=== PATIENT | male | born 1980 | race Caucasian/White ===

== ENCOUNTER 2021-10-03 11:38 | Observation (INO) | payer SELFPAY ==
[~2021-10-03] VITALS: Ht 172 cm; Wt 104.0 kg
--- NOTE | 2021-10-03 12:08 | ED Chest Pain ---
General Chief Complaint: Chest Pain Stated Complaint: CHEST PAIN Source: patient Exam Limitations: no limitations (FLAVIO BOWDEN) History of Present Illness Date Seen by Provider: Oct 03, 2021 Time Seen by Provider: 12:06 Initial Comments Patient is a 41-year-old male with a history of hypertension, diabetes, dysli pidemia, smoking presents ED with chest pain. Acute onset around 1030 this morning. He states this occurred after having sexual intercourse with his . Noted having pressure in his chest with shortness of breath. [place] like somebody punched him in the chest. This lasted for 20 minutes. EMS provided 324 of aspirin which he noted improvement. Denies history of similar symptoms in the past. No history of acid reflux or GERD. Not currently taking blood pressure medication or cholesterol medication. Currently on a shot for his diabetes. No known history of coronary artery disease, COPD. Reports chronic cough. Denies fever, vomiting, diarrhea, Gustavo pain, headache, dizziness. (FLAVIO BOWDEN) Allergies and Home Medications Allergies Coded Allergies: No Known Drug Allergies (Unverified , 10/03/21) Patient Home Medication List Home Medication List Reviewed: Yes (FLAVIO BOWDEN) Semaglutide (Ozempic) 1 Mg/0.75 Ml Pen.injctr, 1 MG SQ MON, (Reported) Entered as Reported by: MAEVE BRANHAM on 10/03/21 1083 Last Action: Reviewed Review of Systems Review of Systems Constitutional: No chills, No diaphoresis, No malaise, No weakness EENTM: No Double Vision, No Eye Pain, No Eye Tearing, No Mouth Pain, No Throat Pain, No Throat Swelling Respiratory: Denies Cough; Shortness of Air; Denies SOA With Exertion, Denies SOA at Rest Cardiovascular: Chest Pain; Denies Edema, Denies Irregular Heart Rate Gastrointestinal: Denies Abdomen Distended, Denies Abdominal Pain, Denies Difficulty Swallowing, Denies Nausea Genitourinary: Denies Burning, Denies Discharge Musculoskeletal: No back pain, No joint pain Skin: No change in color, No change in hair/nails (FLAVIO BOWDEN) All Other Systems Reviewed Negative Unless Noted: Yes (FLAVIO BOWDEN) Physical Exam Vital Signs Vital Signs - First Documented 10/03/21 11:38 Temp 36.4 Pulse 83 Resp 17 B/P (MAP) 151/104 (120) Pulse Ox 95 O2 Delivery Room Air (SHELLIE POND MD) Vital Signs Capillary Refill : (FLAVIO BOWDEN) Height, Weight, BMI Height: '" Weight: lbs. oz. kg; BMI Method: General Appearance: No Apparent Distress, WD/WN HEENT: PERRL/EOMI, TMs Normal, Normal ENT Inspection, Pharynx Normal Neck: Full Range of Motion, Normal Inspection, Non Tender, Supple Respiratory: Chest Non Tender, Lungs Clear, Normal Breath Sounds Cardiovascular: Regular Rate, Rhythm, No Edema, No Gallop, No JVD, No Murmur Gastrointestinal: Normal Bowel Sounds, No Organomegaly, No Pulsatile Mass, Non Tender, Soft Extremity: Normal Capillary Refill, Normal Inspection Neurologic/Psychiatric: Alert, Oriented x3, No Motor/Sensory Deficits, Normal Mood/Affect, climatology professor II-XII Norm as Tested Skin: Normal Color, Warm/Dry (FLAVIO BOWDEN) Progress/Results/Core Measures Results/Orders Lab Results Laboratory Tests Test 10/03/21 11:55 Range/Units White Blood Count 9.0 4.3-11.0 10^3/uL Red Blood Count 5.89 H 4.30-5.52 10^6/uL Hemoglobin 17.6 13.3-17.7 g/dL Hematocrit 51 40-54 % Mean Corpuscular Volume 87 80-99 fL Mean Corpuscular Hemoglobin 30 25-34 pg Mean Corpuscular Hemoglobin Concent 35 32-36 g/dL Red Cell Distribution Width 12.4 10.0-14.5 % Platelet Count 167 130-400 10^3/uL Mean Platelet Volume 11.0 9.0-12.2 fL Immature Granulocyte % (Auto) 1 % Neutrophils (%) (Auto) 71 42-75 % Lymphocytes (%) (Auto) 18 12-44 % Monocytes (%) (Auto) 10 0-12 % Eosinophils (%) (Auto) 1 0-10 % Basophils (%) (Auto) 0 0-10 % Neutrophils # (Auto) 6.3 1.8-7.8 10^3/uL Lymphocytes # (Auto) 1.6 1.0-4.0 10^3/uL Monocytes # (Auto) 0.9 0.0-1.0 10^3/uL Eosinophils # (Auto) 0.1 0.0-0.3 10^3/uL Basophils # (Auto) 0.0 0.0-0.1 10^3/uL Immature Granulocyte # (Auto) 0.1 0.0-0.1 10^3/uL Prothrombin Time 13.4 12.2-14.7 SEC INR Comment 1.0 0.8-1.4 Activated Partial Thromboplast Time 31 24-35 SEC Sodium Level 132 L 135-145 MMOL/L Potassium Level 4.6 3.6-5.0 MMOL/L Chloride Level 101 98-107 MMOL/L Carbon Dioxide Level 21 21-32 MMOL/L Anion Gap 10 5-14 MMOL/L Blood Urea Nitrogen 7 7-18 MG/DL Creatinine 0.82 0.60-1.30 MG/DL Estimat Glomerular Filtration Rate 112 BUN/Creatinine Ratio 9 Glucose Level 249 H 70-105 MG/DL Calcium Level 9.3 8.5-10.1 MG/DL Corrected Calcium 9.1 8.5-10.1 MG/DL Magnesium Level 1.7 1.6-2.4 MG/DL Total Bilirubin 0.8 0.1-1.0 MG/DL Aspartate Amino Transf (AST/SGOT) 30 5-34 U/L Alanine Aminotransferase (ALT/SGPT) 40 0-55 U/L Alkaline Phosphatase 74 40-136 U/L Myoglobin 56.4 10.0-92.0 NG/ML Troponin I < 0.028 <0.028 NG/ML B-Type Natriuretic Peptide < 10.0 <100.0 PG/ML Total Protein 7.5 6.4-8.2 GM/DL Albumin 4.3 3.2-4.5 GM/DL Lipase 64 8-78 U/L (SHELLIE POND MD) My Orders Orders - SHELLIE POND MD Cbc With Automated Diff (10/03/21 11:58) Magnesium (10/03/21 11:58) Chest 1 View, Ap/Pa Only (10/03/21 11:58) Ekg Tracing (10/03/21 11:58) Comprehensive Metabolic Panel (10/03/21 11:58) Myoglobin Serum (10/03/21 11:58) Protime With Inr (10/03/21 11:58) Partial Thromboplastin Time (10/03/21 11:58) O2 (10/03/21 11:58) Monitor-Rhythm Ecg Trace Only (10/03/21 11:58) Lipid Panel (10/04/21 06:00) Ed Iv/Invasive Line Start (10/03/21 11:58) Troponin I Rhea (10/03/21 11:58) (SHELLIE POND MD) Medications Given in ED Current Medications Medications Dose Ordered Sig/Edi Route Start Time Stop Time Status Last Admin Dose Admin Aspirin 81 mg ONCE ONCE PO 10/03/21 13:00 10/03/21 13:02 DC 10/03/21 13:14 81 MG Clopidogrel Bisulfate 75 mg ONCE ONCE PO 10/03/21 13:00 10/03/21 13:02 DC 10/03/21 13:14 75 MG Metoprolol Succinate 100 mg ONCE ONCE PO 10/03/21 13:00 10/03/21 13:02 DC 10/03/21 13:17 100 MG (SHELLIE POND MD) Vital Signs/I&O 10/03/21 11:38 Temp 36.4 Pulse 83 Resp 17 B/P (MAP) 151/104 (120) Pulse Ox 95 O2 Delivery Room Air (SHELLIE POND MD) Comment Sinus rhythm, ST elevation probable in normal early repolarization diffuse leads, 82 bpm, QRS duration 91 MS, QTC 422 MS (FLAVIO BOWDEN) Departure Communication (Admissions) Time/Spoke to Admitting Phy: 13:[address] Daley cardiology. Recommends repeat EKG, Plavix 75 mg daily, baby aspirin 81 mg daily, Toprol-XL 100 mg daily. Continue with diabetes medication. Telemetry on stepdown. Currently n.p.o. Patient was admitted to the hospitalist. Discussed patient with Dr. Hitchcock accepts patient. Concerning for cardiac etiology with several cardiac risk factors. Second EKG without any changes. Second troponin was ordered. (FLAVIO BOWDEN) Impression Primary Impression: Chest pain Disposition: ADMITTED INPATIENT Condition: Stable Admissions Decision to Admit Reason: Admit from ER (General) Decision to Admit/Date: Oct 03, 2021 Time/Decision to Admit Time: 13:09 (FLAVIO BOWDEN) Departure-Patient Inst. Referrals: NO,LOCAL PHYSICIAN (PCP/Family) Primary Care Physician ATTENDING PHYSICIAN NOTE: I was physically present as attending physician in the emergency department during the care of this patient, but I was not directly involved in the decision making or delivery of care for this patient. (SHELLIE POND MD) FLAVIO BOWDEN Oct 03, 2021 12:08 SHELLIE POND MD Oct 03, 2021 20:48
[2021-10-03 12:10] LABS: BASOPHILS % (AUTO) 0 % (0-10); EOSINOPHILS # (AUTO) 0.1 10^3/uL (0.0-0.3); EOSINOPHILS % (AUTO) 1 % (0-10); HEMATOCRIT 51 % (40-54); HEMOGLOBIN 17.6 g/dL (13.3-17.7); LYMPHOCYTES # (AUTO) 1.6 10^3/uL (1.0-4.0); LYMPHOCYTES % (AUTO) 18 % (12-44); MEAN CORPUSCULAR HEMOGLOBIN 30 pg (25-34); MEAN CORPUSCULAR HGB CONC 35 g/dL (32-36); MEAN CORPUSCULAR VOLUME 87 fL (80-99); MONOCYTES # (AUTO) 0.9 10^3/uL (0.0-1.0); MONOCYTES % (AUTO) 10 % (0-12); NEUTROPHILS # (AUTO) 6.3 10^3/uL (1.8-7.8); NEUTROPHILS % (AUTO) 71 % (42-75); PLATELET COUNT 167 10^3/uL (130-400)
[2021-10-03 12:19] LABS: ALBUMIN 4.3 GM/DL (3.2-4.5)
[2021-10-03 12:20] LABS: POTASSIUM 4.6 MMOL/L (3.6-5.0); PROTHROMBIN TIME PATIENT 13.4 SEC (12.2-14.7)
[2021-10-03 12:21] LABS: CALCIUM 9.3 MG/DL (8.5-10.1)
[2021-10-03 12:22] LABS: TOTAL PROTEIN 7.5 GM/DL (6.4-8.2)
[2021-10-03 12:24] LABS: BILIRUBIN,TOTAL 0.8 MG/DL (0.1-1.0)
[2021-10-03 12:26] LABS: CREATININE SERUM 0.82 MG/DL (0.60-1.30)
[2021-10-03 12:27] LABS: LIPASE 64 U/L (8-78)
[2021-10-03 12:29] LABS: MAGNESIUM 1.7 MG/DL (1.6-2.4)
[2021-10-03] MEDS ORDERED: meTOprolol SUCCINATE 100 MG (TOPROL XL) TAB PO ONE (13:00)
[2021-10-03] MEDS ORDERED: ASPIRIN 81 MG CHEW (CHILDREN'S ASA) PO ONE (13:00)
[2021-10-03] MEDS ORDERED: CLOPIDOGREL 75 MG (PLAVIX) TABLET PO ONE (13:00)
--- NOTE | 2021-10-03 13:18 | Diagnostic Imaging Report ---
INDICATION: Chest pain. TIME OF EXAM: 12:51 p.m. COMPARISON: No prior studies are available for comparison. FINDINGS: The heart size is normal. The pulmonary vascularity is unremarkable. The lungs are clear. No infiltrate, effusion or pneumothorax is detected. IMPRESSION: No acute cardiopulmonary process is detected. Dictated by: Dictated on workstation # [id number]
--- NOTE | 2021-10-03 13:53 | Consultation-Cardiology ---
HPI-Cardiology Cardiology Consultation: Date of Consultation 10/03/21 Time Seen by a Provider: 15:10 Date of Admission 10-03-21 Attending Physician Evelyn Hitchcock MD Admitting Physician No,Local Physician Consulting Physician Georgia Daley MD HPI: Chief Complaint: Chest pain Mr. Zuñiga is a 41 yr old male admitted to [facility] from the ED with c/o chest pain. He reports 30 minutes prior to the development of chest pain he had been physically active; however at the time the chest pain started he was sitting at the kitchen table balancing his check book. He reports a sudden onset of left sided, non-radiating, chest pain which he describes as feeling like he was kicked in the chest. He reports he felt SOB, but no other symptoms. He states the pain lasted for 20-30 minutes, constant. He states he checked his BP and noted it to be 180's systolic. He reports he called EMS and then went to finish getting dressed while he waited on EMS. Chest pain did not change in relation to activity. He states he received ASA by EMS and the pain then suddenly resolved. He reports he has a toothache which has been present for approx 2 weeks (he is waiting to see a dentist) for which he has been taking 3 Tylenol along with 2 Ibuprofen and a cola. He states he has been taking a shot of whiskey to held numb the tooth pain. He continues to smoke cigs, approx 1 1/2 PPD. He is currently pain free. Review of Systems-Cardiology Review of Systems Constitutional: No chills, No fever, No malaise Eyes: No vision change Ears/Nose/Throat: As described under HPI; No epistaxis, No recent hearing loss Respiratory: As described under HPI Cardiovascular: As described under HPI Gastrointestinal: No constipation, No diarrhea, No nausea, No vomiting Genitourinary: No dysuria Musculoskeletal: no symptoms reported Skin: No rash on exposed areas, No ulcerations on exposed areas Psychiatric/Neurological: No focal weakness, No syncope Hematologic: No bleeding abnormalities All Other Systems Reviewed Negative Unless Noted: Yes AWD-Tjltfr-Frmmmf Hx Patient Social History Smoking Status: Current Everyday Smoker Have you traveled recently?: No Alcohol Use?: No Pt feels they are or have been: No Past Medical History PMH As described under Assessment. Family Medical History Family Medical History: No reported family h/o CAD. He reports his father had DM and lung cancer. Allergies and Home Medications Allergies Coded Allergies: No Known Drug Allergies (Unverified , 10/03/21) Patient Home Medication List Semaglutide (Ozempic) 1 Mg/0.75 Ml Pen.injctr, 1 MG SQ MON, (Reported) Entered as Reported by: MAEVE BRANHAM on 10/03/21 1951 Last Action: Reviewed Physical Exam-Cardiology Physical Exam Vital Signs/I&O 10/03/21 10/04/21 10/04/21 10/04/21 23:00 01:00 04:04 07:00 Temp 37.0 36.6 Pulse 72 72 69 69 Resp 15 16 B/P (MAP) 137/76 130/85 Pulse Ox 96 95 O2 Delivery Room Air Room Air 10/04/21 08:00 Temp 36.7 Pulse 87 Resp 16 B/P (MAP) 127/74 Pulse Ox 97 O2 Delivery Room Air 10/03/21 23:59 Intake Total 300 ml Balance 300 ml Capillary Refill : Constitutional: AAO x 3, well-developed, well-nourished HEENT: PERRL, hearing is well preserved Neck: No carotid bruit; carotid pulses are 2 + bilaterally Respiratory: No accessory muscle use, No respiratory distress; chest expansion is symmetric, chest is bilaterally symmetric, lungs clear to auscultation Cardiovascular: regular rate-rhythm; No JVD; S1 and S2 Gastrointestinal: No tender; soft, round, audible bowel sounds Extremities: no lower extremity edema bilateral Neurologic/Psychiatric: grossly intact (moves all extremities) Skin: No rash on exposed areas, No ulcerations on exposed areas Data Review Labs Laboratory Tests 10/03/21 11:55: White Blood Count 9.0, Red Blood Count 5.89H, Hemoglobin 17.6, Hematocrit 51, Mean Corpuscular Volume 87, Mean Corpuscular Hemoglobin 30, Mean Corpuscular Hemoglobin Concent 35, Red Cell Distribution Width 12.4, Platelet Count 167, Mean Platelet Volume 11.0, Immature Granulocyte % (Auto) 1, Neutrophils (%) (Auto) 71, Lymphocytes (%) (Auto) 18, Monocytes (%) (Auto) 10, Eosinophils (%) (Auto) 1, Basophils (%) (Auto) 0, Neutrophils # (Auto) 6.3, Lymphocytes # (Auto) 1.6, Monocytes # (Auto) 0.9, Eosinophils # (Auto) 0.1, Basophils # (Auto) 0.0, Immature Granulocyte # (Auto) 0.1, Prothrombin Time 13.4, INR Comment 1.0, Activated Partial Thromboplast Time 31, Sodium Level 132L, Potassium Level 4.6, Chloride Level 101, Carbon Dioxide Level 21, Anion Gap 10, Blood Urea Nitrogen 7, Creatinine 0.82, Estimat Glomerular Filtration Rate 112, BUN/Creatinine Ratio 9, Glucose Level 249H, Calcium Level 9.3, Corrected Calcium 9.1, Magnesium Level 1.7, Total Bilirubin 0.8, Aspartate Amino Transf (AST/SGOT) 30, Alanine Aminotransferase (ALT/SGPT) 40, Alkaline Phosphatase 74, Myoglobin 56.4, Troponin I < 0.028, B-Type Natriuretic Peptide < 10.0, Total Protein 7.5, Albumin 4.3, Lipase 64 10/03/21 15:30: Troponin I 0.527*H 10/03/21 18:16: Prothrombin Time 14.2, INR Comment 1.1, Activated Partial Thromboplast Time 34 10/04/21 04:55: Sodium Level 133L, Potassium Level 4.2, Chloride Level 103, Carbon Dioxide Level 20L, Anion Gap 10, Blood Urea Nitrogen 9, Creatinine 0.78, Estimat Glomerular Filtration Rate 114, BUN/Creatinine Ratio 12, Glucose Level 157H, Calcium Level 9.1, Triglycerides Level 205H, Cholesterol Level 205H, LDL Cholesterol Direct 146H, VLDL Cholesterol 41H, HDL Cholesterol 31L Radiology NAME: ARLET ZUÑIGA [facility] REC#: [id number] PT STATUS: REG ER : 1980 PHYSICIAN: SHELLIE POND MD ADMIT DATE: 10/03/21/ER Draft Date of Exam:10/03/21 CHEST 1 VIEW, AP/PA ONLY INDICATION: Chest pain. TIME OF EXAM: 12:51 p.m. COMPARISON: No prior studies are available for comparison. FINDINGS: The heart size is normal. The pulmonary vascularity is unremarkable. The lungs are clear. No infiltrate, effusion or pneumothorax is detected. IMPRESSION: No acute cardiopulmonary process is detected. Dictated on workstation # [id number] Dict: 10/03/21 1307 Trans: 10/03/21 1318 [id number] Interpreted by: GERSON JONES MD Electronically signed by: ECG Impression ECG Initial ECG Rhythm: Normal Sinus A/P-Cardiology Assessment/Admission Diagnosis NSTEMI DM 2 Tobaccoism - cessation advised Elevated BMI - 35.2 Dental pain Discussion and Recomendations NSTEMI Advise echocardiogram to eval structure and function Advise immediate and complete smoking cessation Monitor lab Replace electrolytes as indicated Further recs will be based on his hospital course We would like to thank medical services for this consult Clinical Quality Measures AMI/AHF: ASA po Prior to arrival: Yes ([phone]) JOAQUIN JIN Oct 03, 2021 13:53
[2021-10-03] MEDS ORDERED: CATHETER FLUSH 10 ML SYR IV PRN (15:00)
[2021-10-03] MEDS ORDERED: SEMA1PEN3 SQ (15:43)
[2021-10-03] MEDS ORDERED: REGADENOSON 0.4 MG/5 ML SYR (LEXISCAN) IV ONE (15:45)
[2021-10-03] MEDS: NICOTINE 21 MG (NICODERM) PATCH TD SCH (15:46)
[2021-10-03] MEDS ORDERED: HEParin (CATH LAB) 2,000 ML IV ONE (16:28)
[2021-10-03] MEDS ORDERED: NS IV 1000 ML 1,000 ML ONE (16:28)
[2021-10-03] MEDS ORDERED: NS IV 1000 ML 1,000 ML IV SCH (16:30)
[2021-10-03] MEDS ORDERED: MIDAZOLAM 5 MG/5 ML (VERSED) VIAL ONE (16:32)
[2021-10-03] MEDS ORDERED: fentaNYL INJ 100 MCG/2 ML AMP ONE (16:32)
[2021-10-03] MEDS ORDERED: LIDOCAINE 1% INJ 20 ML VIAL ONE (16:32)
--- NOTE | 2021-10-03 16:58 | Consultation-Cardiology ---
HPI-Cardiology Cardiology Consultation: Date of Consultation 10/03/21 Time Seen by a Provider: 16:15 Date of Admission Attending Physician Evelyn Hitchcock MD Admitting Physician No,Local Physician Consulting Physician IZA MCGARRY MD, MA, FACP, FACC, FSCAI, CCDS HPI: Chief Complaint: Chest pain Mr. Banks is a 41 yr old male admitted to [facility] from the ED with c/o chest pain. He reports 30 minutes prior to the development of chest pain he had been physically active; however at the time the chest pain started he was sitting at the kitchen table balancing his check book. He reports a sudden onset of left sided, non-radiating, chest pain which he describes as feeling like he was kicked in the chest. He reports he felt SOB, but no other symptoms. He states the pain lasted for 20-30 minutes, constant. He states he checked his BP and n oted it to be 180's systolic. He reports he called EMS and then went to finish getting dressed while he waited on EMS. Chest pain did not change in relation to activity. He states he received ASA by EMS and the pain then suddenly resolved. He reports he has a toothache which has been present for approx 2 weeks (he is waiting to see a dentist) for which he has been taking 3 Tylenol along with 2 Ibuprofen and a cola. He states he has been taking a shot of whiskey to held numb the tooth pain. He continues to smoke cigs, approx 1 1/2 PPD. He is currently pain free. Review of Systems-Cardiology Review of Systems Constitutional: No chills, No fever, No malaise Eyes: No vision change Ears/Nose/Throat: As described under HPI; No epistaxis, No recent hearing loss Respiratory: As described under HPI Cardiovascular: As described under HPI Gastrointestinal: No constipation, No diarrhea, No nausea, No vomiting Genitourinary: No dysuria Musculoskeletal: no symptoms reported Skin: No rash on exposed areas, No ulcerations on exposed areas Psychiatric/Neurological: No focal weakness, No syncope Hematologic: No bleeding abnormalities All Other Systems Reviewed Negative Unless Noted: Yes IAM-Xmitzu-Xnkdil Hx Patient Social History Smoking Status: Current Everyday Smoker Have you traveled recently?: No Alcohol Use?: No Pt feels they are or have been: No Tobacco type used: Cigarettes Past Medical History PMH As described under Assessment. Family Medical History Family Medical History: No reported family h/o CAD. He reports his father had DM and lung cancer. Allergies and Home Medications Allergies Coded Allergies: No Known Drug Allergies (Unverified , 10/03/21) Patient Home Medication List Home Medication List Reviewed: Yes Semaglutide (Ozempic) 1 Mg/0.75 Ml Pen.injctr, 1 MG SQ MON, (Reported) Entered as Reported by: MAEVE BRANHAM on 10/03/21 7282 Last Action: Reviewed Physical Exam-Cardiology Physical Exam Vital Signs/I&O 10/03/21 10/03/21 10/03/21 10/03/21 11:38 14:23 14:40 14:42 Temp 36.4 36.4 36.5 Pulse 83 70 71 Resp 17 17 12 B/P (MAP) 151/104 (120) 121/66 112/71 Pulse Ox 95 97 95 O2 Delivery Room Air Room Air Room Air Room Air 10/03/21 10/03/21 14:42 16:00 Pulse 70 79 Resp 30 B/P (MAP) 123/84 Pulse Ox 97 O2 Delivery Room Air Capillary Refill : Constitutional: AAO x 3, well-developed, well-nourished HEENT: PERRL, hearing is well preserved Neck: No carotid bruit; carotid pulses are 2 + bilaterally Respiratory: No accessory muscle use, No respiratory distress; chest expansion is symmetric, chest is bilaterally symmetric, lungs clear to auscultation Cardiovascular: regular rate-rhythm; No JVD; S1 and S2 Gastrointestinal: No tender; soft, round, audible bowel sounds Extremities: no lower extremity edema bilateral Neurologic/Psychiatric: grossly intact (moves all extremities) Skin: No rash on exposed areas, No ulcerations on exposed areas Data Review Labs Laboratory Tests 10/03/21 11:55: White Blood Count 9.0, Red Blood Count 5.89H, Hemoglobin 17.6, Hematocrit 51, Mean Corpuscular Volume 87, Mean Corpuscular Hemoglobin 30, Mean Corpuscular Hemoglobin Concent 35, Red Cell Distribution Width 12.4, Platelet Count 167, Mean Platelet Volume 11.0, Immature Granulocyte % (Auto) 1, Neutrophils (%) (Auto) 71, Lymphocytes (%) (Auto) 18, Monocytes (%) (Auto) 10, Eosinophils (%) (Auto) 1, Basophils (%) (Auto) 0, Neutrophils # (Auto) 6.3, Lymphocytes # (Auto) 1.6, Monocytes # (Auto) 0.9, Eosinophils # (Auto) 0.1, Basophils # (Auto) 0.0, Immature Granulocyte # (Auto) 0.1, Prothrombin Time 13.4, INR Comment 1.0, Activated Partial Thromboplast Time 31, Sodium Level 132L, Potassium Level 4.6, Chloride Level 101, Carbon Dioxide Level 21, Anion Gap 10, Blood Urea Nitrogen 7, Creatinine 0.82, Estimat Glomerular Filtration Rate 112, BUN/Creatinine Ratio 9, Glucose Level 249H, Calcium Level 9.3, Corrected Calcium 9.1, Magnesium Level 1.7, Total Bilirubin 0.8, Aspartate Amino Transf (AST/SGOT) 30, Alanine Aminotr ansferase (ALT/SGPT) 40, Alkaline Phosphatase 74, Myoglobin 56.4, Troponin I < 0.028, B-Type Natriuretic Peptide < 10.0, Total Protein 7.5, Albumin 4.3, Lipase 64 10/03/21 15:30: Troponin I 0.527*H A/P-Cardiology Assessment/Admission Diagnosis NSTEMI DM 2 Tobaccoism - cessation advised Elevated BMI - 35.2 Dental pain Discussion and Recomendations Card cath with possible PCI recommended. Rationale, procedure, risks, benefits, potential complications, alternatives reviewed. Questions invited and answered. He understands and is willing to proceed Advise immediate and complete smoking cessation Monitor lab Replace electrolytes as indicated Clinical Quality Measures AMI/AHF: ASA po Prior to arrival: Yes (324) IZA MCGARRY MD FACP FAC CCDS Oct 03, 2021 16:58
--- NOTE | 2021-10-03 16:59 | Cardiac Procedure Note-CS/ASA ---
Pre-Procedure Note Pre-Op Procedure Note H&P Reviewed The H&P was reviewed, patient examined and no changes noted. Date H&P Reviewed: Oct 03, 2021 Time H&P Reviewed: 16:58 Conscious Sedation Pre-Proced Time 16:58 ASA Score 3 For ASA 3 and 4: Consider anesthesia and medical clearance. Also, for patients with a history of failed moderate sedation consider anesthesia. Airway Lungs Heart ASA score ASA 1: a normal healthy patient ASA 2: a patient with a mild systemic disease (mid diabetes, controlled hypertension, obesity ASA 3: a patient with a severe systemic disease that limits activity (angina, COPD, prior Myocardial infarction) ASA 4: a patient with an incapacitating disease that is a constant threat to life (CHF, renal failure) ASA 5: a moribund patient not expected to survive 24 hrs. (ruptured aneurysm) ASA 6: a declared brain- patient whose organs are being harvested. For emergent operations, add the letter E after the classification Mallampati Classification Grade 2 Sedation Plan Analgesia, Amnesia, Plan communicated to team members, Discussed options with patient/fam, Discussed risks with patient/fam The patient is an appropriate candidate to undergo the planned procedure, sedation, and anesthesia. The patient immediately re-assessed prior to indication. IZA MCGARRY MD FACP FAC CCDS Oct 03, 2021 16:59
[2021-10-03] MEDS ORDERED: PATIENT MAY USE OWN MEDS, ALL PO SCH (17:45)
[2021-10-03] MEDS: NS IV 1000 ML 1,000 ML IV SCH ×2 (18:07→21:46)
[2021-10-03 18:40] LABS: INR 1.1 (0.8-1.4); PROTHROMBIN TIME PATIENT 14.2 SEC (12.2-14.7)
[2021-10-03] MEDS: CATHETER FLUSH 10 ML SYR IV SCH (20:42)
--- NOTE | 2021-10-03 23:22 | CARDIAC CATHETERIZATION ---
DATE OF SERVICE: CARDIAC CATHETERIZATION The patient is a 41-year-old gentleman who was hospitalized with chest discomfort. Second set of troponin showed mild elevation. This suggested an acute non-ST elevation myocardial infarction. Cardiac catheterization was carried out after having obtained an informed consent. DESCRIPTION OF PROCEDURE: He was brought to the cardiac catheterization laboratory in a fasting state. Right groin was prepared and draped in the usual sterile fashion. Lidocaine 1% was used for local anesthesia. Modified Seldinger technique was used to advance a 6-Burmese sheath into the right femoral artery. We used a 6-Burmese JL4 catheter for left coronary angiography and a 6-Burmese JR4 catheter for right coronary angiography. We used a 6-Burmese pigtail catheter for left heart catheterization and left ventricular angiography. Angiography of the right femoral artery was carried out through the sheath. Following removal of catheters and removal of sheath, Mynx was used to achieve hemostasis. He tolerated the procedure well. HEMODYNAMICS: Left ventricular end-diastolic pressure following coronary angiography was 20 mmHg. There is no significant pressure gradient on pullback across the aortic valve. LEFT VENTRICULAR ANGIOGRAPHY: Left ventricular angiography did not indicate any significant wall motion abnormality. Left ventricular ejection fraction is approximately 60%. CORONARY ANGIOGRAPHY: Left main coronary artery and left anterior descending artery do not exhibit significant disease. There appears to be minimal plaque in the left anterior descending artery and its diagonals. Left circumflex artery does not exhibit significant disease. Right coronary artery does not exhibit significant disease. Right coronary artery is dominant. CONCLUSIONS: 1. Angiographically mild coronary artery disease. 2. Normal global left ventricular systolic function with ejection fraction of 60%. 3. Mild elevation of left ventricular end-diastolic pressure. DISCUSSION AND RECOMMENDATIONS: Based on results of the study, it appears appropriate to continue a conservative approach. Risk factor modification has been reviewed. Antiplatelet and beta-la therapy is being continued. He has been advised to completely refrain from tobacco use. Job ID: [id number] DocumentID: [id number] Dictated Date: 10/03/2021 19:56:32 [employer]ificial [employer]eding Dist[employer] Date: 10/03/2021 23:21:52 Dictated By: IZA MCGARRY MD, MA, FACP, FACC,
[2021-10-04] MEDS: CATHETER FLUSH 10 ML SYR IV SCH (02:59)
[2021-10-04 05:40] LABS: POTASSIUM 4.2 MMOL/L (3.6-5.0)
[2021-10-04 05:41] LABS: CALCIUM 9.1 MG/DL (8.5-10.1)
[2021-10-04 05:46] LABS: CREATININE SERUM 0.78 MG/DL (0.60-1.30)
--- NOTE | 2021-10-04 08:58 | Progress Note - Cardiology ---
Cardiology SOAP Progress Note Objective: I&O/Vital Signs Side: right Groin site without hematoma: Yes Condition: DP/PT pulses palpable Bruising: mild bruising Constitutional: AAO x 3, well-developed, well-nourished Respiratory: No accessory muscle use, No respiratory distress; chest expansion is symmetric, chest is bilaterally symmetric, lungs clear to auscultation Cardiovascular: regular rate-rhythm; No JVD; S1 and S2 Gastrointestional: No tender; soft, round, audible bowel sounds Extremities: no lower extremity edema bilateral Neurologic/Psychiatric: grossly intact (moves all extremities) Skin: No rash on exposed areas, No ulcerations on exposed areas Results/Procedures: Labs A/P: Assessment: NSTEMI - Cardiac cath of 10-03-21: Angiographically mild coronary artery disease. Normal global left ventricular systolic function with ejection fraction of 60%. Mild elevation of left ventricular end-diastolic pressure. DM 2 HLD - statin Tobaccoism - cessation advised Elevated BMI - 35.2 Dental pain Plan: S/P cardiac cath Continue DAPT and statin tx Advise immediate and complete smoking cessation Ok to discharge home today Clinical Quality Measures AMI/AHF: ASA po Prior to arrival: Yes ([phone]) JOAQUIN JIN Oct 04, 2021 08:58
[2021-10-04] MEDS ORDERED: NICOTINE PATCH REMOVAL TP SCH (08:59)
[2021-10-04] MEDS ORDERED: ATOR80TA76 PO (09:00)
[2021-10-04] MEDS ORDERED: lisINopril 10 MG (PRINIVIL) TABLET PO SCH (09:00)
[2021-10-04] MEDS ORDERED: CLOP75TA28 PO (09:00)
[2021-10-04] MEDS ORDERED: ASPIRIN E.C. 81 MG (ECOTRIN) TAB PO SCH (09:00)
[2021-10-04] MEDS ORDERED: meTOprolol SUCCINATE 100 MG (TOPROL XL) TAB PO SCH (09:00)
[2021-10-04] MEDS ORDERED: MTP100TCR PO (09:00)
[2021-10-04] MEDS ORDERED: CLOPIDOGREL 75 MG (PLAVIX) TABLET PO SCH (09:00)
[2021-10-04] MEDS ORDERED: LISI10TA25 PO (09:00)
[2021-10-04] MEDS ORDERED: ASPI-1238 PO (09:00)
--- NOTE | 2021-10-04 09:01 | Discharge Inst-Cardiology ---
Discharge Inst-Cardiac Discharge Medications New Medications: Aspirin (Aspirin EC) 81 Mg Tablet. 81 MG PO DAILY, #90 TAB 3 Refills Atorvastatin Calcium (Atorvastatin Calcium) 80 Mg Tablet 80 MG PO HS, #90 TAB 3 Refills Clopidogrel Bisulfate (Clopidogrel) 75 Mg Tablet 75 MG PO DAILY, #90 TAB 3 Refills Lisinopril (Lisinopril) 10 Mg Tablet 10 MG PO DAILY@0900, #90 TAB 3 Refills Metoprolol Succinate (Metoprolol Succinate) 100 Mg Tab.er.24h 100 MG PO DAILY, #90 TAB 3 Refills Continued Medications: Semaglutide (Ozempic) 1 Mg/0.75 Ml Pen.injctr 1 MG SQ MON, EA New, Converted or Re-Newed RX: Transmitted to Pharmacy Patient Instructions Patient Instructions: Please schedule follow up appointment to see Dr. Daley in 1 week JOAQUIN JIN Oct 04, 2021 09:00
[2021-10-04] MEDS: NICOTINE 21 MG (NICODERM) PATCH TD SCH (09:36)
[2021-10-04 11:30] VITALS: BP 127/74
--- NOTE | 2021-10-04 11:38 | Discharge Summary ---
Discharge Summary Hospital Course Problems/Dx: (1) Chest pain Hospital Course Date of Admission: Oct 03, 2021 at 13:00 Admission Diagnosis : Chest pain Family Physician/Provider: Guevara Davidson Physician Date of Discharge: 10/04/21 Discharge Diagnosis: CAD Hospital Course: Osmar Banks is a 41 year old male with PMH HTN, T2DM, obesity, tobacco abuse, who presented with chest pain. Cardiology was consulted and assisted in his care. He underwent left heart cath which showed mild coronary artery disease. He required no intervention. He was started on aspirin, plavix, lipitor, metoprolol, and lisinopril. His chest pain resolved completely. He should follow up with his PCP and Cardiology. He was discharged home in stable condition. Labs and Pending Lab Test: Laboratory Tests 10/03/21 11:55: White Blood Count 9.0, Red Blood Count 5.89H, Hemoglobin 17.6, Hematocrit 51, Mean Corpuscular Volume 87, Mean Corpuscular Hemoglobin 30, Mean Corpuscular Hemoglobin Concent 35, Red Cell Distribution Width 12.4, Platelet Count 167, Mean Platelet Volume 11.0, Immature Granulocyte % (Auto) 1, Neutrophils (%) (Auto) 71, Lymphocytes (%) (Auto) 18, Monocytes (%) (Auto) 10, Eosinophils (%) (Auto) 1, Basophils (%) (Auto) 0, Neutrophils # (Auto) 6.3, Lymphocytes # (Auto) 1.6, Monocytes # (Auto) 0.9, Eosinophils # (Auto) 0.1, Basophils # (Auto) 0.0, Immature Granulocyte # (Auto) 0.1, Prothrombin Time 13.4, INR Comment 1.0, Activated Partial Thromboplast Time 31, Sodium Level 132L, Potassium Level 4.6, Chloride Level 101, Carbon Dioxide Level 21, Anion Gap 10, Blood Urea Nitrogen 7, Creatinine 0.82, Estimat Glomerular Filtration Rate 112, BUN/Creatinine Ratio 9, Glucose Level 249H, Calcium Level 9.3, Corrected Calcium 9.1, Magnesium Level 1.7, Total Bilirubin 0.8, Aspartate Amino Transf (AST/SGOT) 30, Alanine Aminotransferase (ALT/SGPT) 40, Alkaline Phosphatase 74, Myoglobin 56.4, Troponin I < 0.028, B-Type Natriuretic Peptide < 10.0, Total Protein 7.5, Albumin 4.3, Lipase 64 10/03/21 15:30: Troponin I 0.527*H 10/03/21 18:16: Prothrombin Time 14.2, INR Comment 1.1, Activated Partial Thromboplast Time 34 10/04/21 04:55: Sodium Level 133L, Potassium Level 4.2, Chloride Level 103, Carbon Dioxide Level 20L, Anion Gap 10, Blood Urea Nitrogen 9, Creatinine 0.78, Estimat Glomerular Filtration Rate 114, BUN/Creatinine Ratio 12, Glucose Level 157H, Calcium Level 9.1, Triglycerides Level 205H, Cholesterol Level 205H, LDL Cholesterol Direct 146H, VLDL Cholesterol 41H, HDL Cholesterol 31L Home Meds Active Aspirin EC (Aspirin) 81 Mg Tablet.dr 81 Mg PO DAILY Lisinopril 10 Mg Tablet 10 Mg PO DAILY@0900 Metoprolol Succinate 100 Mg Tab.er.24h 100 Mg PO DAILY Atorvastatin Calcium 80 Mg Tablet 80 Mg PO HS Clopidogrel (Clopidogrel Bisulfate) 75 Mg Tablet 75 Mg PO DAILY Reported Ozempic (Semaglutide) 1 Mg/0.75 Ml Pen.injctr 1 Mg SQ MON Assessment/Pt Instructions Take medications as prescribed. Follow up with your PCP. Return with worsening chest pain, shortness of breath, or if you feel like you are getting worse. Discharge Planning: <30 minutes discharge planning Discharge Instructions Discharge Diet: Low Sodium Diet Activity as Tolerated: Yes Consultations Cardiology Discharge Physical Examination Vital Signs Vital Signs Date Time Temp Pulse Resp B/P (MAP) Pulse Ox O2 Delivery O2 Flow Rate FiO2 10/04/21 08:00 36.7 87 16 127/74 97 Room Air General Appearance: No Apparent Distress, WD/WN HEENT: PERRL/EOMI, Pharynx Normal Respiratory: Lungs Clear, No Respiratory Distress Cardiovascular: Regular Rate, Rhythm, No Edema, No Murmur Gastrointestinal: Normal Bowel Sounds, Non Tender, Soft Extremity: Normal Inspection, Non Tender, No Pedal Edema Skin: Normal Color, Warm/Dry Neurologic/Psychiatric: Alert, Oriented x3, No Motor/Sensory Deficits, Normal Mood/Affect Allergies: Coded Allergies: No Known Drug Allergies (Unverified , 10/03/21) Discharge Summary Date of Admission Oct 03, 2021 at 13:00 Date of Discharge Discharge Date: Oct 04, 2021 Discharge Time: 11:34 Admission Diagnosis Chest pain Consults/Procedures Consulations Cardiology Procedures Left heart cath Discharge Diagnosis (1) Chest pain (2) CAD (coronary artery disease) Clinical Quality Measures AMI/AHF: ASA po Prior to arrival: Yes ([phone]) PAYAM CAMARGO MD Oct 04, 2021 11:38
--- NOTE | 2021-10-16 14:42 | Physician Query Clarification ---
PQ-Further Specificity Admission/Discharge Admission Date: Oct 03, 2021 at 13:00 Discharge Date: Oct 04, 2021 at 11:30 Dr. Daley, The medical record reflects the following clinical scenario: History/Risk Factors: chest pain, mild CAD Clinical Findings: Troponin 0.527, heart cath showed 1. Angiographically mild coronary artery disease. 2. Normal global left ventricular systolic function with ejection fraction of 60%. 3. Mild elevation of left ventricular end-diastolic pressure. Treatment: started on aspirin, plavix, lipitor, metoprolol, and lisinopril Question: Can you further specify the type of NC or if ruled out after study per the clinical indicators above? Please document a response in the Progress Notes or Discharge Summary. 1. Type 2 NC 2. NSTEMI as stated 3. NC ruled out 3. Other, with explanation of the clinical findings. 4. Clinically undetermined, no explanation for the clinical findings. PHYSICIAN RESPONSE Can you specify per above: 2 Explanation/Clinical Findings NSTEMI, as stated, without any significant underlying CAD Please remember a lack of response to the above will prompt a phone page by CDI/Coding staff. In responding to this query, please exercise your independent professional judgment. The purpose of this communication is to more accurately reflect the complexity of your patients condition. The fact that a question is asked does not imply that any particular answer is desired or expected. Thank you for your timely response to this clarification. Requestors name: Miguel Angel THIS PHYSICIAN QUERY FORM IS A PERMANENT PART OF THE MEDICAL RECORD MIGUEL ANGEL MONAHAN Oct 16, 2021 14:42 IZA DALEY MD [facility] Oct 17, 2021 11:16
== END 2021-10-04 11:30 | disposition home or self-care (01) ==
LOC: ER 11:40 → CSD 13:00
PROVIDERS: ADMIT Internal Medicine; ATTEND Internal Medicine
DX: I21.4 Non-ST elevation (NSTEMI) myocardial infarction (principal); I25.10 Atherosclerotic heart disease of native coronary artery without angina pectoris; I10 Essential (primary) hypertension; E11.9 Type 2 diabetes mellitus without complications; E78.5 Hyperlipidemia, unspecified; F17.210 Nicotine dependence, cigarettes, uncomplicated; K08.89 Other specified disorders of teeth and supporting structures; E66.9 Obesity, unspecified; Z68.35 Body mass index [BMI] 35.0-35.9, adult
CPT/HCPCS: 71045; 80048; 80053; 80061; 83690; 83735; 83874; 83880; 84484; 85025; 85610; 85730; 93005; 93041; 93306; 93458; 99284; C1760; C1894; G0378; 36415